=== PATIENT | male | born 1945 | race Caucasian/White ===

== ENCOUNTER 2017-09-19 17:28 | Emergency (ER) | payer MEDICARE ==
[~2017-09-19] VITALS: Ht 180.3 cm; Wt 110.0 kg
[2017-09-19 17:34] VITALS: BP 180/85; PULSE 63; RESP 18; TEMP 99; O2SAT 95
[2017-09-19] MEDS ORDERED: ASPI-516 CHEW (17:45)
[2017-09-19] MEDS ORDERED: MONT10TA2 PO (17:45)
[2017-09-19] MEDS ORDERED: PRAV40TA2 PO (17:45)
[2017-09-19] MEDS ORDERED: LORA1TAB12 PO (17:45)
[2017-09-19] MEDS ORDERED: LISI-515 PO (17:45)
--- NOTE | 2017-09-19 18:15 | RADRPT ---
EXAM DATE/TIME: 09/19/2017 17:53 [facility] COMPARISON: No previous studies available for comparison. INDICATIONS : Trauma, fall with laceration on top right side of head. Cephalgia. RADIATION DOSE: 65.02 CTDIvol (mGy) MEDICAL HISTORY : None SURGICAL HISTORY : None. ENCOUNTER: Initial ACUITY: 1 day PAIN SCALE: 7/10 LOCATION: Right cranial TECHNIQUE: Multiple contiguous axial images were obtained of the head. Using automated exposure control and adj ustment of the mA and/or kV according to patient size, radiation dose was kept as low as reasonably a chievable to obtain optimal diagnostic quality images. DICOM format image data is available electro nically for review and comparison. FINDINGS: CEREBRUM: The ventricles are normal for age. No evidence of midline shift, mass lesion, hemorrhage or acute in farction. No extra-axial fluid collections are seen. Mild to moderate periventricular and subcortica l white matter small vessel ischemic changes are noted bilaterally. Old lacunar infarcts are noted wi thin the left basal ganglia. POSTERIOR FOSSA: The cerebellum and brainstem are intact. The 4th ventricle is midline. The cerebellopontine angle i s unremarkable. EXTRACRANIAL: The visualized portion of the orbits is intact. There is opacification of the right maxillary sinus a nd anterior ethmoid air cells on the right. There is bowing of the medial wall the right maxillary si nus towards the nasal cavity raising the possibility of mucocele or sinus mass. SKULL: The calvaria is intact. No evidence of skull fracture. CONCLUSION: 1. No acute infarct, acute hemorrhage, midline shift or extra-axial fluid collections. 2. Mild to moderate periventricular and subcortical white matter small vessel ischemic changes bilate rally. 3. Old lacunar infarcts within the left basal ganglia. 4. Medial bowing of the right medial maxillary wall raising the possibility of mucocele or underlying sinus mass. 5. Opacification of the right maxillary sinus and anterior ethmoid air cells on the right. Aren Valenzuela MD on September 19, 2017 at 18:10 Board Certified Radiologist. This report was verified electronically.
--- NOTE | 2017-09-19 18:20 | PD ---
HPI Chief Complaint: Fall Time Seen by Provider: 17:41 Travel History International Travel<30 days: No Contact w/Intl Traveler<30days: No Traveled to known affect area: No History of Present Illness HPI 72-year-old male brought in by his status post fall after tripping on a curb local restaurant causing him to fall forward with contusion to the right hand, right forearm, and abrasions to both knees worse on the right than the left, as well as the upper right anterior parietal scalp. There is a partial-thickness laceration to the upper scalp. Patient denies loss of consciousness, dizziness, nausea, or vomiting. Does state headache of 7 out of 10. He denies neck pain. He is ambulatory. Bleeding is controlled with dressing placed by . This occurred approximately 1 hour prior to arrival. Patient is allergic to codeine, hydrocodone, and morphine. Patient took 2 ibuprofen prior to coming to the hospital. Tetanus is less than 5 years PFSH Past Medical History Asthma: Yes Anxiety: Yes (PANIC ATTACKS) High Cholesterol: Yes Hypertension: Yes Respiratory: Yes (asthma) Tetanus Vaccination: < 5 Years ?: Not Past Surgical History Other Surgery: Yes (LIPOMA REMOVAL BACK) Social History Alcohol Use: Yes (DAILY) Tobacco Use: No Substance Use: No Allergies-Medications (Allergen,Severity, Reaction): Coded Allergies: codeine (Verified Allergy, Severe, RASH, 09/19/17) hydrocodone (Verified Allergy, Severe, RASH, 09/19/17) morphine (Verified Allergy, Severe, RASH, 09/19/17) Reported Meds & Prescriptions Reported Meds & Active Scripts Active Reported Aspirin 81 Mg Chew 81 Mg CHEW DAILY Pravastatin 40 Mg Tab 40 Mg PO DAILY Lorazepam 1 Mg Tab 1 Mg PO Q6H PRN Singulair (Montelukast Sodium) 10 Mg Tab 10 Mg PO HS Lisinopril 20 Mg Tab 20 Mg PO DAILY Review of Systems Except as stated in HPI: all other systems reviewed are Neg General / Constitutional: No: Fever Eyes: No: Visual changes HENT: Positive: Headaches, No: Vertigo, Lightheadedness, Sore Throat, Rhinitis , Rhinorrhea, Congestion, Nosebleed, Neck Stiffness, Neck Pain, Dental Difficulties, Earache Cardiovascular: No: Chest Pain or Discomfort Respiratory: No: Shortness of Breath Gastrointestinal: No: Nausea, Vomiting, Diarrhea, Abdominal Pain Genitourinary: No: Dysuria Musculoskeletal: No: Pain Skin: Positive Lesions, No Rash Neurologic: No: Weakness Psychiatric: No: Depression Endocrine: No: Polydipsia Hematologic/Lymphatic: No: Easy Bruising Physical Exam Narrative GENERAL: Patient appears in mild distress. SKIN: Warm and dry. Normal color. Normal turgor. Patient has a 6 cm diameter superficial abrasion to the right anterior knee over the patella. Patient also has abrasion/partial laceration to the right upper anterior parietal scalp. Patient is noted to have ecchymosis in the palm of the right hand as well as the dorsal right proximal forearm. HEAD: Normocephalic. Tender at abrasion area. EYES: Pupils equal and round. No scleral icterus. No injection or drainage. Ocular motions are normal bilaterally. No nystagmus. ENT: No nasal bleeding or discharge. Mucous membranes pink and moist. No dental injury. Pharynx is clear. NECK: Trachea midline. No bony tenderness or step-off. Range of motion is full and nontender. Cervical spine is cleared utilizing nexus criteria. CARDIOVASCULAR: Regular rate and rhythm. RESPIRATORY: No accessory muscle use. Clear to auscultation. Breath sounds equal bilaterally. GASTROINTESTINAL: Abdomen soft, non-tender, nondistended. Hepatic and splenic margins not palpable. MUSCULOSKELETAL: Extremities without clubbing, cyanosis, or edema. No obvious deformities. Patient has superficial abrasion to the right anterior knee, but no signs of laxity or deformity. Patient is ambulatory. Range of motion of the right hand and elbow are normal. NEUROLOGICAL: Awake and alert. No obvious cranial nerve deficits. Motor grossly within normal limits. Five out of 5 muscle strength in the arms and legs. Normal speech. PSYCHIATRIC: Appropriate mood and affect; insight and judgment normal. Data Data Last Documented VS Vital Signs Date Time Temp Pulse Resp B/P (MAP) Pulse Ox O2 Delivery O2 Flow Rate FiO2 09/19/17 17:34 99.0 63 18 180/85 (116) [address] Brain W/O Iv Contrast(Rout) (09/19/17 17:45) Wound Care (09/19/17 17:45) MDM Medical Decision Making Medical Screen Exam Complete: Yes Emergency Medical Condition: Yes Differential Diagnosis Trip and fall. Abrasion. Head injury. Partial laceration to the scalp. Intracranial bleed. Narrative Course CT of the head is ordered. Steri-Strips applied to the partial laceration of the scalp. Wound care performed to abrasions. CT shows: 1. No acute infarct, acute hemorrhage, midline shift or extra-axial fluid collections. 2. Mild to moderate periventricular and subcortical white matter small vessel ischemic changes bilaterally. 3. Old lacunar infarcts within the left basal ganglia. 4. Medial bowing of the right medial maxillary wall raising the possibility of mucocele or underlying sinus mass. 5. Opacification of the right maxillary sinus and anterior ethmoid air cells on the right. Patient is felt stable for discharge home. Patient take ibuprofen 600 mg 3 times a day with food. #30. Patient can take extra strength Tylenol as well as needed. Wound care as discussed. Steri-Strips will fall off on there own over the next week. Patient should follow-up with his primary care physician next week to ensure improvement. Patient can return if worsening symptoms develop. Diagnosis Primary Impression: Fall Qualified Codes: W19.XXXA - Unspecified fall, initial encounter Additional Impressions: Multiple abrasions Laceration of scalp without complication Qualified Codes: S01.01XA - Laceration without foreign body of scalp, initial encounter Referrals: Primary Care Physician Patient Instructions: Abrasion (ED), General Instructions, Laceration (DC) Additional Instructions: CT results: 1. No acute infarct, acute hemorrhage, midline shift or extra-axial fluid collections. 2. Mild to moderate periventricular and subcortical white matter small vessel ischemic changes bilaterally. 3. Old lacunar infarcts within the left basal ganglia. 4. Medial bowing of the right medial maxillary wall raising the possibility of mucocele or underlying sinus mass. 5. Opacification of the right maxillary sinus and anterior ethmoid air cells on the right. Patient is felt stable for discharge home. Patient take ibuprofen 600 mg 3 times a day with food. #30. Patient can take extra strength Tylenol as well as needed. Wound care as discussed. Steri-Strips will fall off on there own over the next week. Patient should follow-up with his primary care physician next week to ensure improvement. Patient can return if worsening symptoms develop. Med/Other Pt SpecificInfo: Prescription(s) given, Wound Care Disposition: DISCHARGE HOME Condition: Stable Miguel Navarro Sep 19, 2017 18:20
[2017-09-19] MEDS ORDERED: MAPA500T13 PO (18:27)
[2017-09-19] MEDS ORDERED: IBUP-232 PO (18:27)
== END 2017-09-19 18:43 | disposition home or self-care (01) ==
LOC: PHEFT 17:28
DX: S01.01XA Laceration without foreign body of scalp, initial encounter (principal); S80.212A Abrasion, left knee, initial encounter; S80.211A Abrasion, right knee, initial encounter; J45.909 Unspecified asthma, uncomplicated; E78.00 Pure hypercholesterolemia, unspecified; I10 Essential (primary) hypertension; W10.1XXA Fall (on)(from) sidewalk curb, initial encounter
CPT/HCPCS: 70450; 99284